=== PATIENT | female | born 1950 | race Caucasian/White ===

== ENCOUNTER 2017-04-20 07:00 | Inpatient (IN) ==
[2017-04-16 15:19] LABS: Basophils # (Auto) 0 K/mcL (0.0-0.3); Basophils % (Auto) 0.4 % (0.0-2.0); Eosinophils # (Auto) 0.5 K/mcL (0.0-0.7); Eosinophils % (Auto) 4.9 % (0.0-7.0); Granulocytes % (Auto) 62.7 % (38.0-78.0); Lymphocytes # (Auto) 2.2 K/mcL (1.5-4.8); Lymphocytes % (Auto) 22.8 % (15.5-49.0); Mean Cell Volume 79.8 fL (80.0-100.0); Mean Corpuscular HGB Conc 32.9 g/dL (31.0-36.0); Mean Corpuscular Hemoglobin 26.2 pg (26.0-34.0); Monocytes # (Auto) 0.9 K/mcL (0.1-0.9); Monocytes % (Auto) 9.2 % (1.0-12.0); Platelet Count 257 K/mcL (140-440); RBC 5.03 M/mcL (4.00-5.20); Red Cell Distribution Width 18.7 % (11.5-14.5)
[2017-04-16 15:31] LABS: Blood Urea Nitrogen 17 mg/dl (8-23)
[2017-04-16 18:15] LABS: Appearance,Urine CLEAR; Bilirubin,Urine NEG (NEG); Color,Urine YELLOW; Glucose,Urine (UA) NEGATIVE (NEG); Leukocyte Esterase,Urine NEG /uL (NEG); Nitrate,Urine NEG (NEG); Protein,Urine NEG (NEG); Specific Gravity,Urine 1.023 (1.000-1.035); Urine Blood NEG mg/dL (<0.03); Urobilinogen,Urine NEG (NEG)
[~2017-04-20 07:00] MED LIST: ACETAMINOPHEN 500 MG TABLET PO SCH; CELECOXIB 200 MG CAPSULE PO SCH; KETOROLAC 30 MG, ROPIVACAINE HCL/PF 49.5 ML, EPINEPHrine 0.5 MG, 0.9 % SODIUM CHLORIDE ... IJ SCH; PREGABALIN 75 MG CAPSULE PO SCH; ceFAZolin 1 GM VIAL IV SCH
[2017-04-20] MEDS: oxyCODONE 10 MG TAB.ER.12H PO SCH ×2 (08:22→08:26)
[2017-04-20] MEDS ORDERED: ePHEDrine 50 MG/ML AMPUL IV ONE (09:00)
[2017-04-20] MEDS ORDERED: ROPIVACAINE HCL/PF 30 ML VIAL IJ ONE (09:00)
[2017-04-20] MEDS ORDERED: LIDOCAINE HCL/PF 100 MG/5 ML SYRINGE IV ONE (09:00)
[2017-04-20] MEDS ORDERED: TRANEXAMIC ACID 1,000 MG/10 ML VIAL IV ONE ×2 (09:00→10:43)
[2017-04-20] MEDS ORDERED: MIDAZOLAM 5 MG/5 ML VIAL IV ONE (09:00)
[2017-04-20] MEDS ORDERED: PROPOFOL 200 MG/20 ML VIAL IV ONE (09:00)
[2017-04-20] MEDS ORDERED: ONDANSETRON 4 MG/2 ML VIAL IV ONE (09:00)
[2017-04-20] MEDS ORDERED: DEXAMETHASONE 10 MG/ML VIAL IV ONE (09:00)
[2017-04-20] MEDS ORDERED: GENTAMICIN SULFATE 800 MG/20 ML VIAL IR ONE (09:27)
[2017-04-20] MEDS ORDERED: ONDANSETRON 4 MG/2 ML VIAL IV PRN ×2 (10:15→10:43)
[2017-04-20] MEDS ORDERED: ePHEDrine 50 MG/ML AMPUL IV PRN (10:15)
[2017-04-20] MEDS ORDERED: diphenhydrAMINE 50 MG/ML VIAL IV PRN (10:15)
[2017-04-20] MEDS ORDERED: LACTATED RINGERS 250 ML IV PRN (10:15)
[2017-04-20] MEDS ORDERED: HYDROmorphone 2 MG/ML SYRINGE IV PRN ×2 (10:15→10:43)
[2017-04-20] MEDS ORDERED: FLUMAZENIL 0.1 MG/ML ML IV PRN (10:15)
[2017-04-20] MEDS ORDERED: IPRATROPIUM/ALBUTEROL 3 ML AMPUL.NEB NEB PRN (10:15)
[2017-04-20] MEDS ORDERED: MEPERIDINE 25 MG/ML SYRINGE IV PRN (10:15)
[2017-04-20] MEDS ORDERED: NALOXONE HCL 0.4 MG/ML VIAL IV PRN (10:15)
[2017-04-20] MEDS ORDERED: PROMETHAZINE 25 MG/ML VIAL IV PRN (10:15)
[2017-04-20] MEDS ORDERED: BENZOCAINE/MENTHOL 1 LOZENGE PO PRN ×2 (10:15→10:43)
[2017-04-20] MEDS ORDERED: fentaNYL 100 MCG/2 ML VIAL IV PRN (10:15)
[2017-04-20] MEDS ORDERED: LACTATED RINGERS 1,000 ML IV SCH (10:15)
[2017-04-20] MEDS ORDERED: METHOCARBAMOL 1,000 MG/10 ML VIAL IV PRN (10:15)
--- NOTE | 2017-04-20 10:41 | Brief Operative Note ---
Date of procedure: 04/20/17 Pre-op diagnosis: Right knee severe djd Post-op diagnosis: same Procedure: Right knee tka with lyle Complications: none Surgeon: Poncho Kay Master Printer: Matt Hansen Estimated blood loss (cc): 20 Tourniquet Time (Minutes): 52 Specimens Removed/Pathology: none sent Condition: stable Disposition: PACU
[2017-04-20] MEDS ORDERED: POLYETHYLENE GLYCOL 3350 17 GM PACKET PO PRN (10:43)
[2017-04-20] MEDS ORDERED: HYDROcodone/APAP 10/325MG TABLET PO PRN (10:43)
[2017-04-20] MEDS ORDERED: FLEETS ADULT ENEMA PR PRN (10:43)
[2017-04-20] MEDS ORDERED: TEMAZEPAM 15 MG CAPSULE PO PRN (10:43)
[2017-04-20] MEDS ORDERED: BISACODYL 10 MG SUPP.RECT PR PRN (10:43)
[2017-04-20] MEDS ORDERED: MAGNESIUM HYDROXIDE 30 ML ORAL.SUSP PO PRN (10:43)
--- NOTE | 2017-04-20 11:37 | XRay Report ---
CLINICAL INFORMATION: Postsurgical follow-up Technique: AP and crosstable lateral right knee COMPARISON: None. FINDINGS: Status post right total knee arthroplasty. Prosthetic complements are in anatomic positions. There is postsurgical soft tissue and intra-articular gas IMPRESSION: Status post right total knee arthroplasty Interpreted and Authenticated by: Brett Barba 04/20/17
[2017-04-20] MEDS: 0.45 % SODIUM CHLORIDE 1,000 ML IV SCH ×2 (11:59→22:35)
[2017-04-20] MEDS: 0.9 % SODIUM CHLORIDE 10 ML SYRINGE IV SCH ×2 (12:04→22:09)
[2017-04-20] MEDS: KETOROLAC 15 MG/ML VIAL IV SCH ×3 (12:11→23:41)
[2017-04-20] MEDS: ceFAZolin 1 GM VIAL IV SCH (16:14)
[2017-04-20] MEDS: ACETAMINOPHEN 325 MG TABLET PO PRN ×2 (16:28→20:54)
[2017-04-20] MEDS ORDERED: PROMETHAZINE 25 MG TABLET PO PRN (17:33)
[2017-04-20] MEDS: DOCUSATE SODIUM 100 MG CAPSULE PO SCH (20:55)
[2017-04-20] MEDS: ASPIRIN 325 MG ENTERIC COATED TABLET PO SCH (20:55)
[2017-04-20] MEDS ORDERED: SENNOSIDES 1 TABLET PO SCH (21:00)
[2017-04-21] MEDS: ceFAZolin 1 GM VIAL IV SCH (00:30)
[2017-04-21] MEDS: 0.9 % SODIUM CHLORIDE 10 ML SYRINGE IV SCH ×2 (05:16→16:00)
[2017-04-21] MEDS: KETOROLAC 15 MG/ML VIAL IV SCH ×2 (05:28→12:46)
[2017-04-21] MEDS: 0.45 % SODIUM CHLORIDE 1,000 ML IV SCH (06:48)
[2017-04-21] MEDS: traMADol 50 MG TABLET PO PRN ×4 (07:28→13:00)
--- NOTE | 2017-04-21 07:56 | Orthopedic Progress Note ---
Subjective Patient information: Note initiated : 04/21/17 at 7:55 am Service Date, if different from initiated Date: [] Patient: Hamida Ndiaye 67 y/o F admitted on 04/20/17 for Right Total Knee Arthroplasty with Mina Assist. Chief Complaint: minimal pain no n and vomiting Objective Vital signs: Vital Signs Temp Pulse Resp BP BP Pulse Ox 04/21/17 07:32 98 04/21/17 07:30 93 04/21/17 07:05 97.8 F 18 104/43 93 04/21/17 04:00 97.5 F 57 L 16 103/62 95 04/21/17 00:00 95 04/20/17 20:15 96 04/20/17 19:48 97.4 F 54 L 16 128/58 90 04/20/17 18:00 95 04/20/17 15:40 97.1 F 18 162/74 92 04/20/17 14:43 92 04/20/17 13:30 98.2 F 16 149/74 92 04/20/17 13:00 18 141/60 93 04/20/17 12:30 97.6 F 16 112/53 93 04/20/17 12:21 92 04/20/17 12:15 16 127/74 93 04/20/17 12:00 18 120/69 94 04/20/17 11:45 97.8 F 16 119/73 92 04/20/17 11:37 97.3 F 67 18 138/60 96 04/20/17 11:25 64 13 127/57 98 04/20/17 11:10 71 21 140/64 97 04/20/17 11:05 65 12 129/63 97 04/20/17 11:00 63 12 118/60 96 04/20/17 10:55 97.5 F 72 10 L 142/66 96 Intake and Output 04/20/17 04/21/17 04/21/17 21:59 05:59 13:59 Intake Total 1600 / 1600 1500 / 1500 Output Total 725 / 725 800 / 800 700 / 700 Balance 875 / 875 700 / 700 -700 / -700 Intake: IV 1000 / 1000 1000 / 1000 Sodium Chloride 0.45% 1, 1000 / 1000 000 ml @ 100 mls/hr IV . Q10H NETO Rx#:[id number] Oral 600 / 600 500 / 500 Output: Void Amount 550 / 550 800 / 800 700 / 700 Straight 500 / 500 Emesis 175 / 175 Other: # Voids 1 Weight 224 lb Intake & Output: Intake & Output 04/20/17 04/21/17 04/21/17 21:59 05:59 13:59 Intake Total 1600 / 1600 1500 / 1500 Output Total 725 / 725 800 / 800 700 / 700 Balance 875 / 875 700 / 700 -700 / -700 Weight 224 lb Intake: IV 1000 / 1000 1000 / 1000 Sodium Chloride 0.45% 1, 1000 / 1000 000 ml @ 100 mls/hr IV . Q10H NETO Rx#:[id number] Oral 600 / 600 500 / 500 Output: Void Amount 550 / 550 800 / 800 700 / 700 Straight 500 / 500 Emesis 175 / 175 Other: # Voids 1 Incision: Yes healing Incision clean and dry: Yes Dressing: Yes clean Weight bearing status: full Neurological exam IM: Yes oriented X3, Yes neurovascular intact Extremities exam IM: Yes Foot pink and warm (dc home), Yes neurovascular intact - Labs CBC & BMP: 04/21/17 05:05 04/16/17 14:03 Labs: Orthopedic Labs 04/16/17 14:03 PT 13.3 INR 1.0 APTT 30 04/21/17 04/16/17 05:05 14:04 Hgb 13.2 Hct 37.0 40.1
--- NOTE | 2017-04-21 07:58 | Discharge Summary ---
Ortho Discharge - TKA - Patient Instructions Diet: Regular Diet Activity: activity as tolerated, weight bearing as tolerated Total Knee Protocol: For Total Knee: Start ROM OFE with stationary bike or rocking chair. Work on gaining full extension of knee. Posterior dislocation precautions provided. Hip abductor strengthening and gait training instructions provided. Apply Cryocuff as instructed. Dressing Care: Aquacel Ag - leave on for 5 days Patient Education: Total Knee Replacement (DC) Additional Instructions: CPM for home use - Follow Up Plan Follow Up Appointments: Poncho Kay MD [Physician] - 05/05/17 10:40 am Disposition: Home, Self-Care Prognosis: Good Rehab Potential: Good I certify that the patient requires SNF services: No Overall status at discharge: patient is progressing back to baseline - Orders For Discharge Prescriptions: Aspirin [Ecotrin] 325 mg PO BID #28 tab.ec traMADol [Ultram] 50 mg PO Q4HP PRN #60 tablet PRN Reason: Pain Additional Discharge Orders: Physical Therapy at Discharge - TKA Location: Determined By Patient CPM Discharge Order Location: Determined By Patient Toilet Riser Discharge Order Location: Determined By Patient Walker Location: Determined By Patient
[2017-04-21] MEDS: DOCUSATE SODIUM 100 MG CAPSULE PO SCH (08:35)
[2017-04-21] MEDS: ASPIRIN 325 MG ENTERIC COATED TABLET PO SCH (08:35)
[2017-04-21] MEDS ORDERED: FLUoxetine HCL 20 MG CAPSULE PO SCH (09:00)
== END 2017-04-21 15:55 | disposition home or self-care (01) | DRG 470 ==
LOC: MEDSUR 07:00
PROVIDERS: ADMIT Orthopaedic Surgery; ATTEND Orthopaedic Surgery